=== PATIENT | female | born 1990 | race African-American/Black ===

== ENCOUNTER 2017-05-05 22:58 | Emergency (ER) | payer BC, OTHER ==
[~2017-05-05] VITALS: Ht 167.6 cm; Wt 60.9 kg
[2017-05-06] MEDS ORDERED: guaiFENesin/CODEINE SYRUP 5 ML UDC PO ONE
[2017-05-06] MEDS ORDERED: NAPR500T PO (00:29)
[2017-05-06] MEDS ORDERED: ALBU17IN INH (00:29)
[2017-05-06] MEDS ORDERED: TESS100C PO (00:29)
--- NOTE | 2017-05-06 00:39 | REP ---
Clinical: Cough and congestion . Comparison: None . Technique: PA and lateral. Findings: The mediastinum and cardiac silhouette are normal. The lung mena are clear and without acute consolidation, effusion, or pneumothorax. The skeletal structures are intact and normal. Impression: 1. No acute cardiopulmonary process. Signed by Jorge Grove MD 05/06/2017 12:30 A
[2017-05-06 00:41] VITALS: BP 115/76
== END 2017-05-06 00:41 | disposition home or self-care (01) ==
LOC: M ED 23:35
DX: J20.9 Acute bronchitis, unspecified (principal); Z91.040 Latex allergy status

== ENCOUNTER → 2021-03-24 | Outpatient (CLI) | payer OTHER ==
[~2021-03-24] MED LIST: ALBU17IN INH; NAPR-837 PO; TESS100C PO
== END ==
LOC: M LAB 11:56
DX: O88 Obstetric embolism (principal); Z3A.00 Weeks of gestation of pregnancy not specified; O22.33 Deep phlebothrombosis in pregnancy, third trimester; Z79.01 Long term (current) use of anticoagulants

== ENCOUNTER → 2022-02-09 | Outpatient (CLI) | payer OTHER | LOC: M SOG 10:19 | PROVIDERS: ATTEND Orthopaedic Surgery | DX: M54.50 Low back pain, unspecified (principal) ==

== ENCOUNTER 2022-11-02 14:03 | Emergency (ER) | payer OTHER, SELFPAY ==
[~2022-11-02] VITALS: Ht 167.6 cm; Wt 78.5 kg
[2022-11-02] MEDS ORDERED: ASPI81CH33 PO (14:09)
[2022-11-02 15:29] LABS: BASO # 0.1 10^3/uL (0.0-0.2); BASO % 0.8 % (0.0-1.0); EOS # 0.1 10^3/uL (0.0-0.5); EOS % 1.1 % (0.0-3.0); HEMATOCRIT 41.6 % (36.0-47.0); HEMOGLOBIN 13.2 g/dl (12.0-15.5); LYMPH # 2.1 10^3/uL (1.5-5.0); LYMPH % 33.2 % (24.0-44.0); MEAN CORPUSCULAR HEMOGLOBIN 28.3 pg (27.0-33.0); MEAN CORPUSCULAR HGB CONC 31.7 g/dl (32.0-36.5); MEAN CORPUSCULAR VOLUME 89.3 fl (80.0-96.0); MONO # 0.5 10^3/uL (0.0-0.8); MONO % 7.9 % (2.0-8.0); NEUTROPHILS # 3.7 10^3/uL (1.5-8.5); NEUTROPHILS % 56.8 % (36.0-66.0); PLATELET COUNT, AUTOMATED 266 10^3/uL (150-450); RED BLOOD COUNT 4.66 10^6/uL (4.00-5.40); WHITE BLOOD COUNT 6.4 10^3/uL (4.0-10.0)
[2022-11-02 15:36] LABS: BLOOD UREA NITROGEN 12 MG/DL (9-23); CALCIUM LEVEL 9.2 MG/DL (8.5-10.1); CARBON DIOXIDE LEVEL 28 MMOL/L (20-31); CHLORIDE LEVEL 103 MMOL/L (98-107); CREATININE FOR GFR 0.66 MG/DL (0.55-1.30); GLOMERULAR FILTRATION RATE > 60.0 (>60); GLUCOSE, FASTING 100 MG/DL (60-100); POTASSIUM SERUM 3.6 MMOL/L (3.5-5.1); SODIUM LEVEL 138 MMOL/L (136-145)
[2022-11-02 19:11] VITALS: BP 124/81
== END 2022-11-02 21:21 | disposition left against medical advice (07) ==
LOC: M ED 14:03
DX: Z53.21 Procedure and treatment not carried out due to patient leaving prior to being seen by health care provider (principal)

== ENCOUNTER → 2023-02-24 | Outpatient (REF) | payer SELFPAY, OTHER ==
[~2023-02-24] MED LIST changes: +ASPI81CH33 PO
[2023-02-24 20:11] LABS: GC DNA AMPLIFICATION NEGATIVE (NEGATIVE)
== END ==
LOC: M SFHCPLAZ 17:13
PROVIDERS: ATTEND Physician Assistant
DX: R10.2 Pelvic and perineal pain (principal)